=== PATIENT | female | born 1965 | race Caucasian/White ===

== ENCOUNTER 2018-04-06 12:21 | Emergency (ER) | payer BC ==
--- NOTE | 2018-04-06 13:41 | UC ---
Truncal Trauma HPI - HPI Summary HPI Summary: 52 yo female presents with RIGHT rib pain for the last 5 days. She tells me that she was on vacation and ran into a wooden ledge with her right ribs. Has been painful since that time. [place] "[place]" [place] - so has not been able rest her side. Hurts when taking deep breaths at times or when reaching above her head. Denies cough, SOB, chest pain. - History Of Current Complaint Stated Complaint: RIB CAGE INJURY Time Seen by Provider: 04/06/18 13:41 Hx Obtained From: Patient Onset/Duration: Sudden Onset Severity Initially: Mild Severity Currently: Mild Pain Intensity: 2 Pain Scale Used: 0-10 Numeric - Allergies/Home Medications Allergies/Adverse Reactions: Allergies Allergy/AdvReac Type Severity Reaction Status Date / Time No Known Allergies Allergy Verified 04/06/18 13:43 PMH/Surg Hx/FS Hx/Imm Hx Endocrine History: Hypothyroidism Psychological History: Anxiety - Surgical History Surgical History: None - Family History Known Family History: Positive: None - Social History Occupation: Employed Full-time Lives: With Family Alcohol Use: Weekly Substance Use Type: None Smoking Status (MU): Never Smoked Tobacco Review of Systems Constitutional: Negative Skin: Negative Respiratory: Negative Cardiovascular: Negative Gastrointestinal: Negative Neurovascular: Negative Musculoskeletal: Other: - Right rib pain Neurological: Negative Psychological: Negative All Other Systems Reviewed And Are Negative: Yes Physical Exam - Summary Physical Exam Summary: GENERAL: NAD. WDWN. No pain distress. SKIN: No rashes, sores, lesions, or open wounds. NECK: Supple. Nontender. No lymphadenopathy. CHEST: CTAB. No r/r/w. No accessory muscle use. Breathing comfortably and in no distress. CV: RRR. Without m/r/g. Pulses intact. Brisk cap refill. MSK: Mild TTP over 6th-9th rib anterolateral. NEURO: Alert. CN II-XII grossly intact. PSYCH: Age appropriate behavior. Triage Information Reviewed: Yes Vital Signs: Vital Signs: Temp Pulse Resp BP Pulse Ox 98.7 F 72 14 97/67 97 04/06/18 13:36 04/06/18 13:36 04/06/18 13:36 04/06/18 13:36 04/06/18 13:36 Vital Signs Reviewed: Yes Truncal Trauma Course/Dx - Course Course Of Treatment: XR: IMPRESSION: NEGATIVE EXAMINATION. Suspect rib contusion. Advised to continue with heat/ice and may take ibuprofen q6h prn pain. - Differential Dx/Diagnosis Provider Diagnoses: Right rib contusion Discharge - Sign-Out/Discharge Documenting (check all that apply): Patient Departure - Discharge Plan Condition: Stable Disposition: HOME Patient Education Materials: Rib Contusion (ED) Referrals: Sukumar De León MD [Primary Care Provider] - Additional Instructions: If you develop a fever, shortness of breath, chest pain, new or worsening symptoms - please call your PCP or go to the ED. - Billing Disposition and Condition Condition: STABLE Disposition: Home
[2018-04-06 13:43] VITALS: BP 97/67
--- NOTE | 2018-04-06 14:38 | RAD ---
INDICATION: Right rib pain COMPARISON: None TECHNIQUE: Multiple views of the ribs were obtained. FINDINGS: Bones: There is no evidence of acute rib fracture. LUNGS: The lungs are clear. There is no pneumothorax. Pleural spaces: There is no evidence of hemothorax. Other: None IMPRESSION: NEGATIVE EXAMINATION.
== END 2018-04-06 14:43 | disposition home or self-care (01) ==
LOC: UCEAST 12:21
DX: S20.211A Contusion of right front wall of thorax, initial encounter (principal); W22.09XA Striking against other stationary object, initial encounter; Y93.9 Activity, unspecified; Y92.9 Unspecified place or not applicable
CPT/HCPCS: 99211; G0463